=== PATIENT | female | born 1965 | race Caucasian/White ===

== ENCOUNTER 2016-08-24 00:06 | Emergency (ER) | payer BC | END 2016-08-24 02:08 | disposition home or self-care (01) | LOC: D.ER 00:06 | DX: S99.921A Unspecified injury of right foot, initial encounter (principal); W22.8XXA Striking against or struck by other objects, initial encounter; Y93.89 Activity, other specified; Y92.89 Other specified places as the place of occurrence of the external cause; S62.306A Unspecified fracture of fifth metacarpal bone, right hand, initial encounter for closed fracture; E07.9 Disorder of thyroid, unspecified; I10 Essential (primary) hypertension ==